=== PATIENT | female | born 1990 | race Caucasian/White ===

== ENCOUNTER 2016-10-28 09:50 | Inpatient (IN) ==
[2016-10-28] MEDS ORDERED: miSOPROStol 25 MCG TABLET PO PRN (10:36)
[2016-10-28] MEDS ORDERED: Famotidine 20 MG/2 ML VIAL IVP PRN (10:36)
[2016-10-28] MEDS ORDERED: Ondansetron 4 MG/2 ML VIAL IVP PRN (10:36)
[2016-10-28 10:57] LABS: Basophils % 0.2 %; Eosinophils # 0.1 K/mcL (0.0-0.6); Eosinophils % 0.5 %; Hematocrit 35.8 % (35.3-44.9); Hemoglobin 11.9 g/dL (11.5-15.4); Immature Granulocytes % 0.5 % (0-4); Immature Platelets 10.1 % (1.1-6.1); Lymphocytes # 1.6 K/mcL (0.6-4.6); Lymphocytes % 14.8 %; Mean Corpuscular HGB Conc 33.2 g/dL (31.6-35.5); Mean Corpuscular Hemoglobin 31.6 pg (28.0-33.3); Mean Platelet Volume 11.5 fL (9.4-12.4); Monocytes # 0.5 K/mcL (0.0-1.3); Neutrophils # 8.6 K/mcL (1.6-8.9); Platelet Count 202 K/mcL (140-400); Red Blood Count 3.77 M/mcL (3.82-4.97); Red Cell Distribution Width 13.1 % (11.5-14.5)
[2016-10-28] MEDS: Ringers Solution, Lactated 1,000 ML IVC SCH ×2 (11:11→18:02)
--- NOTE | 2016-10-28 11:53 | OB/GYN History & Physical ---
Date of Encounter: 10/28/16 Time of Encounter: 11:50 Assessment and Plan (1) 39 weeks gestation of Current visit: Yes Status: Acute Admit for IOL. Cytotec PO for induction. GBS negative. Epidural when requested. AROM when able. Anticipate . (2) Rubella non-immune status, antepartum Current visit: Yes Status: Acute Vaccinate following delivery. History of Present Illness Chief complaint: IOL HPI: Ms. Brandt is a 25 year old female presenting at 39w6d for elective IOL. She denies complaints this am. Good FM. This was complicated by elevated glucola with normal 3 hour GTT. Blood type O positive. Rubella non- immune. Serologies and GBS negative. Past Med Surg Social Fam HX - Past Medical History Medical history: no medical history Psychiatric history: no psych history - Past Surgical History Surgical History: other - Social History Smoking Status: Never smoker Smokeless Tobacco Status: No Alcohol use: none Drug use: none - Family History Father Living Status: Still Living Hx Family Endocrine Disorder: Yes (DIABETES) Obstetrical History - Pregnancies : 1 Para: 0 Medications and Allergies HydrOXYzine Pamoate [Vistaril] 25 mg PO QPM PRN 10/28/16 [History] Nystatin POWDER [Nystop] 2 puff TP QID PRN 10/28/16 [History] Vitamin Tablet 1 tab PO DAILY 10/28/16 [History] Allergies No Known Allergies Allergy (Verified 10/28/16 10:32) Review of System OB All systems PM: reviewed and no additional remarkable complaints except as stated - Constitutional Constitutional ROS IM: no fatigue, no fever(s), no headache(s) - Cardiovascular Cardiovascular: no chest pain - Respiratory Respiratory: no dyspnea - Gastrointestinal Gastrointestinal: no abdominal pain - Genitourinary Genitourinary: no abnormal vaginal bleeding, no pelvic pain - Neurological Nerological: no abnormal speech, no headache(s), no other visual disturbances Exam - Constitutional Constitutional: well developed, well nourished, no acute distress - HEENT HEENT: Mucus Membranes Moist - Neck Neck exam: normal inspection (f) - Lungs Respiratory exam: CTAB - Cardiovascular Cardiovascular exam: RRR, +S1, +S2 - Abdomen Abdomen: Present: gravid, non tender (EFW by leopoljulio 8lbs) - Extremities Extremities exam: pedal edema (1+ edema bilaterally, no redness or warmth) Deep Tendon Reflex Grade: 2+ Normal - Vulva Vulva: bilateral: normal - Vagina Vagina: Present: normal moisture - Cervix Dilation: 2 - Uterus Uterus exam: Present: normal size - Anus/Rectum Anus/Rectum: Present: normal perianal skin Results Result Diagrams: 10/28/16 10:51 Abnormal lab results RBC 3.77 M/mcL (3.82-4.97) L 10/28/16 10:51 Immature Plt Fraction 10.1 % (1.1-6.1) H 10/28/16 10:51 All other labs normal. - VTE Reasons for not Prescribing Prophylaxis: Treatment not Indicated - Low risk for VTE
--- NOTE | 2016-10-28 15:28 | Anesthesia Evaluation PreOp ---
Date of Encounter: 10/28/16 Time of Encounter: 15:20 - Past History Planned Operation: Labor Epidural Cardiac History: Denies any Significant Hx Pulmonary History: Denies Any Significant HX CAREER DEVELOPMENT CONSULTANT History: Other (Deaf) Other Medical History: Denies Any Significant HX Anesthesia History: No Prior Anesthetic Complications : Yes Alcohol Use: none Drug use: none Medications and Allergies HydrOXYzine Pamoate [Vistaril] 25 mg PO QPM PRN 10/28/16 [History] Nystatin POWDER [Nystop] 2 puff TP QID PRN 10/28/16 [History] Vitamin Tablet 1 tab PO DAILY 10/28/16 [History] Allergies No Known Allergies Allergy (Verified 10/28/16 10:32) - Meds/Allergy Pre-op Review Medications Reviewed: Yes Allergies Reviewed: Yes Beta Blockers on Current Med List: No Anesthesia Results - Labs 10/28/16 10:51 Anesthesia Exam Height: 1.75m Weight: 91.6kg NPO (# of Hours): >4hr Pain Scale: 5 Pain Scale Used: Numeric (1 - 10) - HEENT Pupil (Motor): Pupils equal Mallampati: II Teeth: Normal Oral Opening: Greater than 3 - CAREER DEVELOPMENT CONSULTANT LOC: Oriented CAREER DEVELOPMENT CONSULTANT Motor: Normal RUE, Normal LUE, Normal RLE, Normal LLE, Normal Face CAREER DEVELOPMENT CONSULTANT Sensory: Normal: RUE, LUE, RLE, LLE, Face (Deaf) - Cardiac Rhythm: Regular Murmur: None JVD: No Carotid Bruit: No - Pulmonary Breath Sounds: bilateral Clear Respiratory Effort: Symmetrical Anesthesia Assess/Plan ASA Score: 2 Modified [place] Scale for Level of Consciousness: Cooperative, oriented, and tranquil Anesthetic Plan: Regional Monitoring Plan: Standard Monitors Recovery Plan: Other
[2016-10-28] MEDS ORDERED: *HR* FentaNYL (PF) 100 MCG/2 ML VIAL EP ONE (15:31)
[2016-10-28] MEDS ORDERED: *HR* Ropivacaine/PF 0.2% 10 ML AMPUL EP ONE (15:31)
[2016-10-28] MEDS ORDERED: EPHEDrine 50 MG/ML VIAL IVP PRN (15:31)
[2016-10-28] MEDS ORDERED: Epidural Premix (fent/bupiv) 110 ML EP ONE ×2 (15:34→22:21)
[2016-10-28] MEDS ORDERED: *HR* Ropivacaine/PF 0.2% 10 ML AMPUL ONE (15:34)
[2016-10-28] MEDS ORDERED: *HR* FentaNYL (PF) 100 MCG/2 ML VIAL ONE (15:34)
[2016-10-28] MEDS ORDERED: Epidural Premix (fent/bupiv) 110 ML EP SCH (15:45)
--- NOTE | 2016-10-28 16:07 | Anesthesia Procedures ---
Date of Encounter: 10/28/16 Time of Encounter: 15:45 Procedures: Anesthesia - Epidural/Spinal Patient ID/Chart reviewed: Yes Patient examined: Yes OB Eval: Gestational age: 39.6 OB Eval: : 1 OB Eval: Hx Para: 0 OB Eval: Dilated at (cm): 4 OB Eval: Contractions: Non-stressed pattern Consent Obtained: Yes Supplemental Oxygen: None/Room Air Site Prep: Aseptic Technique, Sterile prep and drape, 0.5% Chlorhexidine/Alcohol Patient position: upright Local Anesthetic: Lidocaine 1% Amount of Local Anesthetic used: 3 Touhy Needle Gauge: 18 Touhy Needle Depth (cm): 7 Catheter Depth at Skin (cm): 13 Test Dose (1.5% Lido + Epi): Volume given (mls): 5 Test Dose Result: Negative Loading Dose: Fentanyl (mcg): 100 Loading Dose: Other: Ropivacaine 0.2% 10mL Loading Dose Administered: Thru Catheter Infusion Med: 0.125% Bupivacaine w/ 2 mcg/ml Fentanyl Infusion Rate (mls/hr): 16 (Bolus 4mL q15min; Max 3/hr) Catheter Secured in Place: Tegaderm Interspace Used: L2-L3 Loss of Resistance (HILDA): Yes Blood: No CSF: No Paresthesia: No Procedure: Patient tolerated well. 1 attempt at L2/3 level. Vitals + FHT's: VSS and FHR stable throughout procedure. See nursing documentation.
--- NOTE | 2016-10-28 16:39 | OB Labor Progress Note ---
Date of Encounter: 10/28/16 Time of Encounter: 16:37 Labor Progress Note - Subjective Subjective: Pt comfortable with epidural. - Cervix Cervix: 4/50/-1 - Heart Tones Heart Tones: Category I - Laird Laird: 2-3 minutes - Interventions Interventions: AROM for moderate amount clear fluid, IUPC placed - Plan Plan: Continue to monitor. Anticipate .
[2016-10-28] MEDS ORDERED: Oxytocin 20 units/ LR 1000 mL 20 UNIT/1,000 ML BAG IVC SCH (17:15)
[2016-10-29] MEDS ORDERED: Epidural Premix (fent/bupiv) 110 ML EP ONE (05:41)
--- NOTE | 2016-10-29 08:27 | OB/GYN Procedure Note ---
Delivery - Delivery Date: 10/29/16 Provider: Mil Barron Intrapartum events: none Delivery induction: oxytocin, galeana, misoprostol Delivery augmentation: rupture of membranes Delivery monitor: external FHT, internal uterine Anesthesia: epidural Estimated Blood Loss: 200 - (s) A Infant Delivery Date: 10/29/16 Delivery Time: 08:01 Presentation: vertex Position: CONNIE Route of delivery: Gender: Male Pounds: 7 Ounces: 13 at 1 minute: 8 at 5 mins: 9 Shoulder Dystocia: not encountered Specimens collected: cord blood Placenta: spontaneous Cord: 3 umbilical vessels - Repair Episiotomy: none Laceration Description: Perineal - 1st Degree - Complications Delivery complications: none - Disposition Mom disposition: stable in LDR disposition: stable in LDR
[2016-10-29] MEDS ORDERED: Rho Immune Globulin 1,500 UNIT SYRINGE IM PRN (11:05)
[2016-10-29] MEDS ORDERED: Nitrofurantoin (BID) 100 MG CAPSULE PO SCH (11:05)
[2016-10-29] MEDS ORDERED: Measles/Mumps/Rubella Vacc 0.5 ML VIAL SQ PRN (11:05)
[2016-10-29] MEDS ORDERED: Oxytocin 20 units/ LR 1000 mL 20 UNIT/1,000 ML BAG IVC SCH (11:05)
[2016-10-29] MEDS ORDERED: Acetaminophen 325 MG TABLET PO PRN (11:05)
[2016-10-29] MEDS: Prenatal Vit/FA 1 EACH TABLET PO SCH (11:48)
[2016-10-29] MEDS: Ibuprofen 600 MG TABLET PO PRN (22:46)
[2016-10-30 03:58] LABS: Basophils % 0.1 %; Eosinophils # 0.1 K/mcL (0.0-0.6); Eosinophils % 0.7 %; Hematocrit 28.9 % (35.3-44.9); Immature Granulocytes % 0.7 % (0-4); Lymphocytes # 2.1 K/mcL (0.6-4.6); Lymphocytes % 12.6 %; Mean Corpuscular HGB Conc 32.5 g/dL (31.6-35.5); Mean Corpuscular Hemoglobin 31.9 pg (28.0-33.3); Mean Platelet Volume 11.4 fL (9.4-12.4); Monocytes # 0.8 K/mcL (0.0-1.3); Monocytes % 4.7 %; Neutrophils # 13.7 K/mcL (1.6-8.9); Platelet Count 184 K/mcL (140-400); Red Blood Count 2.95 M/mcL (3.82-4.97); Red Cell Distribution Width 13.5 % (11.5-14.5); Segmented Neutrophils % 81.2 %
[2016-10-30 04:22] LABS: Hemoglobin 9.4 g/dL (11.5-15.4)
[2016-10-30 08:34] VITALS: BP 115/72
[2016-10-30] MEDS: Ibuprofen 600 MG TABLET PO PRN (08:39)
[2016-10-30] MEDS: Prenatal Vit/FA 1 EACH TABLET PO SCH (08:39)
--- NOTE | 2016-10-30 10:41 | Discharge Summary ---
Date of Encounter: 10/30/16 Time of Encounter: 10:38 - Discharge Diagnosis (1) Rubella non-immune status, antepartum Priority: Secondary Status: Acute Comments: MMR prior to discharge. (2) (normal spontaneous vaginal delivery) Priority: Primary Status: Acute Comments: Pt meeting milestones. (3) anemia Priority: Secondary Status: Acute Comments: Discharge home on iron. Pt denies s/sx anemia (4) Hemorrhoid Priority: Secondary Status: Acute Comments: Tucks given. Qualifiers: Hemorrhoid type: unspecified Qualified Code(s): K64.9 - Unspecified hemorrhoids (5) Yeast dermatitis Priority: Secondary Status: Acute Comments: Pt requesting more nystatin cream. - Discharge Medications Prescriptions: Ibuprofen [Motrin] 600 mg PO Q6HR PRN #60 tablet PRN Reason: Analgesia Docusate [Colace] 100 mg PO BID #60 capsule Ferrous Sulfate 325 mg PO DAILY #30 tablet Home Medications: Nystatin POWDER [Nystop] 2 puff TP QID PRN 10/28/16 [History] Vitamin Tablet 1 tab PO DAILY 10/28/16 [History] Dibucaine [Nupercainal] 1 appl TP BID #1 tube 10/30/16 [Rx] Docusate [Colace] 100 mg PO BID #60 capsule 10/30/16 [Rx] Ferrous Sulfate 325 mg PO DAILY #30 tablet 10/30/16 [Rx] Ibuprofen [Motrin] 600 mg PO Q6HR PRN #60 tablet 10/30/16 [Rx] Nystatin Cream [Mycostatin Cream] 1 appl TP BID #1 tube 10/30/16 [Rx] Allergies/Adverse Reactions: Allergies No Known Allergies Allergy (Verified 10/28/16 10:32) Data Procedures and tests throughout hospitalization: Laboratory Tests 10/28/16 10/30/16 10:51 03:43 WBC 10.9 16.9 H D RBC 3.77 L 2.95 L Hgb 11.9 9.4 L D Hct 35.8 28.9 L MCV 95.0 98.0 MCH 31.6 31.9 MCHC 33.2 32.5 RDW 13.1 13.5 Plt Count 202 184 MPV 11.5 11.4 Immature Gran % 0.5 0.7 Seg Neutrophils % 79.0 81.2 Lymphocytes % 14.8 12.6 Monocytes % 5.0 4.7 Eosinophils % 0.5 0.7 Basophils % 0.2 0.1 Neutrophils # 8.6 13.7 H Lymphocytes # 1.6 2.1 Monocytes # 0.5 0.8 Eosinophils # 0.1 0.1 Basophils # 0.0 0.0 Immature Plt Fraction 10.1 H Labs on day of discharge: Labs from last 24 hours 10/30/16 03:43 WBC 16.9 H D RBC 2.95 L Hgb 9.4 L D Hct 28.9 L MCV 98.0 MCH 31.9 MCHC 32.5 RDW 13.5 Plt Count 184 MPV 11.4 Immature Gran % 0.7 Seg Neutrophils % 81.2 Lymphocytes % 12.6 Monocytes % 4.7 Eosinophils % 0.7 Basophils % 0.1 Neutrophils # 13.7 H Lymphocytes # 2.1 Monocytes # 0.8 Eosinophils # 0.1 Basophils # 0.0 Date of admission: 10/28/16 09:50 Primary care physician: PCP MELLISA Consults: 10/29/16 11:05 Consult to Hvac Service Technician [CONS] Routine Comment: Vaginal delivery, consult needed Discharging clinician: Amy Díaz Anticipated date of discharge: 10/30/16 - Patient Status Disposition: Home, Self-Care Condition: Good Functional capacity at discharge: independent ambulation Overall status at discharge: patient is progressing back to baseline - Discharge Instructions Follow Up With: MELLISA,PCP [Primary Care Provider] - Mil Barron MD [Partnered Physician] - - Diet and Activity Activity: increase activity as tolerated Diet: advance to your usual diet Hospital Course Reason for admission: induction of labor Delivery: Episiotomy: none Laceration: 1st degree Other procedures: none complications: none Discharge diagnosis: IUP at term delivered baby: male Hospital course: - Delivery Date: 10/29/16 Provider: Mil Barron Intrapartum events: none Delivery induction: oxytocin, galeana, misoprostol Delivery augmentation: rupture of membranes Delivery monitor: external FHT, internal uterine Anesthesia: epidural Estimated Blood Loss: 200 - (s) Infant A Infant Delivery Date: 10/29/16 Infant Delivery Time: 08:01 Presentation: vertex Position: CONNIE Route of delivery: Gender: Male Pounds: 7 Ounces: 13 at 1 minute: 8 at 5 mins: 9 Shoulder Dystocia: not encountered Specimens collected: cord blood Placenta: spontaneous Cord: 3 umbilical vessels - Repair Episiotomy: none Laceration Description: Perineal - 1st Degree - Complications Delivery complications: none - Disposition Mom disposition: home PPD#1 [place] disposition: home with mother, bottle feeding Time Attestation: Total time spent providing and/or coordinating discharge services: Time Spent: Less than 30 minutes Exam - Constitutional Vitals: Temp Pulse Resp BP Pulse Ox 98 F 105 20 115/72 98 10/30/16 08:05 10/30/16 08:05 10/30/16 08:45 10/30/16 08:05 10/30/16 08:05 General appearance IM: A&O X 3, pleasant, no acute distress - Respiratory Respiratory exam: Present: CTAB - Cardiovascular Cardiovascular exam IM: Present: RRR, +S1, +S2 - GI/Abdominal GI/Abdominal exam IM: soft - Rectal Rectal exam: hemorrhoids - External exam: normal external exam Uterine Tone: Firm Uterus Position: 1 Finger Below Umbilicus - Extremities Exam Extremities exam IM: Present: normal inspection, pedal edema (mild edema bilaterally) - Neurological Exam Neurological exam: normal gait, oriented X3 - Psychiatric Additional comments: reports good mood
== END 2016-10-30 12:41 | disposition home or self-care (01) | DRG 775 ==
LOC: 1NENULAB 09:50 → 1NENUOBS 10-29 10:40
PROVIDERS: ADMIT Obstetrics & Gynecology; ATTEND Obstetrics & Gynecology

== ENCOUNTER → 2021-06-07 18:15 | Observation (INO) ==
[2021-06-07 17:40] LABS: Bilirubin,Urine Negative (Negative); Blood,Urine Negative (Negative); Clarity,Urine Clear (Clear); Color,Urine Colorless (Yellow); Glucose,Urine (UA) Normal (Normal); Ketones,Urine 20 mg/dL (Negative); Leukocyte Esterase,Urine Negative (Negative); Nitrite,Urine Negative (Negative); PH,Urine 6.5 pH Units (5.0-8.0); Protein,Urine Negative (Neg-Trace); Specific Gravity,Urine 1.007 (1.010-1.025); Urobilinogen,Urine Normal (Normal)
== END | disposition home or self-care (01) ==
LOC: 1NENULAB
PROVIDERS: ADMIT Advanced Practice Midwife; ATTEND Advanced Practice Midwife

== ENCOUNTER → 2021-07-11 15:26 | Observation (INO) | END | disposition home or self-care (01) | LOC: 1NENULAB | PROVIDERS: ADMIT Advanced Practice Midwife; ATTEND Advanced Practice Midwife ==

== ENCOUNTER → 2021-07-25 14:59 | Observation (INO) | END | disposition home or self-care (01) | LOC: 1NENULAB | PROVIDERS: ADMIT Advanced Practice Midwife; ATTEND Advanced Practice Midwife ==

== ENCOUNTER → 2021-07-27 16:44 | Observation (INO) ==
[2021-07-27 16:16] LABS: Bilirubin,Urine Negative (Negative); Blood,Urine Negative (Negative); Clarity,Urine Clear (Clear); Color,Urine Light-Yellow (Yellow); Glucose,Urine (UA) Normal (Normal); Ketones,Urine 40 mg/dL (Negative); Leukocyte Esterase,Urine Trace (Negative); Nitrite,Urine Negative (Negative); PH,Urine 6.5 pH Units (5.0-8.0); Protein,Urine Trace mg/dL (Neg-Trace); Specific Gravity,Urine 1.015 (1.010-1.025); Urobilinogen,Urine Normal (Normal)
[2021-07-27 16:28] LABS: Mucus,Urine Many per lpf (None-Few); Squamous Epithelial Cell,Urine Few per hpf (None-Few)
== END | disposition home or self-care (01) ==
LOC: 1NENULAB
PROVIDERS: ADMIT Advanced Practice Midwife; ATTEND Advanced Practice Midwife

== ENCOUNTER 2021-08-08 11:21 | Inpatient (IN) ==
[2021-08-08] MEDS ORDERED: Naloxone 0.4 MG/ML INJ IVP PRN (11:35)
[2021-08-08] MEDS ORDERED: *HR* Nalbuphine 10 MG/ML AMPUL IV PRN (11:35)
[2021-08-08] MEDS ORDERED: Famotidine 20 MG/2 ML VIAL IVP PRN (11:35)
[2021-08-08] MEDS ORDERED: Azithromycin 500 MG in 0.9 % Sodium Chloride 250 ML IVPB PRN (11:35)
[2021-08-08] MEDS ORDERED: Ondansetron 4 MG/2 ML VIAL IVP PRN (11:35)
[2021-08-08] MEDS ORDERED: Metoclopramide 10 MG/2 ML VIAL IVP PRN (11:35)
[2021-08-08] MEDS ORDERED: Oxytocin 20 units/ LR 1000 mL 20 UNIT/1,000 ML BAG IVC SCH (11:45)
[2021-08-08] MEDS ORDERED: Penicillin G Potassium 5,000,000 UNIT in 0.9 % Sodium Chloride Mini Bag 100 ML IVPB ONE (12:00)
[2021-08-08] MEDS ORDERED: EPHEDrine 50 MG/ML VIAL IVP PRN (12:25)
[2021-08-08] MEDS ORDERED: Epidural Premix (fent/bupiv) 110 ML EP SCH (12:30)
[2021-08-08 12:48] LABS: Basophils % 0.3 %; Eosinophils # 0.1 K/mcL (0.0-0.6); Eosinophils % 0.4 %; Hematocrit 34.8 % (35.3-44.9); Hemoglobin 11.6 g/dL (11.5-15.4); Immature Granulocytes % 0.6 % (0-4); Lymphocytes # 1.7 K/mcL (0.6-4.6); Lymphocytes % 12.7 %; Mean Corpuscular HGB Conc 33.3 g/dL (31.6-35.5); Mean Corpuscular Hemoglobin 32.9 pg (28.0-33.3); Mean Corpuscular Volume 98.6 fL (83.0-100.0); Mean Platelet Volume 10.7 fL (9.4-12.4); Monocytes # 0.7 K/mcL (0.0-1.3); Monocytes % 5.1 %; Neutrophils # 10.7 K/mcL (1.6-8.9); Platelet Count 261 K/mcL (140-400); Red Blood Count 3.53 M/mcL (3.82-4.97); Red Cell Distribution Width 12.8 % (11.5-14.5); Segmented Neutrophils % 80.9 %; White Blood Count 13.2 K/mcL (4.3-11.1)
[2021-08-08] MEDS ORDERED: Ondansetron 4 MG/2 ML VIAL ONE (13:03)
[2021-08-08 13:15] LABS: Influenza A PCR Negative (Negative); Influenza B PCR Negative (Negative); Resp. Syncytial Virus PCR Negative (Negative)
[2021-08-08 13:17] LABS: SARS-CoV-2 by PCR (In House) Negative (Negative)
[2021-08-08 13:24] LABS: Amphetamine Screen,Urine Negative ng/mL (Cutoff=1000); Barbiturate Screen,Urine Negative ng/mL (Cutoff=200); Benzodiazepines Screen,Urine Negative ng/mL (Cutoff=200); Cannabinoid Screen,Urine Negative ng/mL (Cutoff = 50); Cocaine Screen,Urine Negative ng/mL (Cutoff= 300); Opiate Screen,Urine Negative ng/mL (Cutoff=300); Phencyclidine Screen,Urine Negative ng/mL (Cutoff=25)
[2021-08-08] MEDS: Ringers Solution, Lactated 1,000 ML IVC SCH ×2 (13:59→22:03)
[2021-08-08] MEDS: Penicillin G Potassium 2,500,000 UNIT/105 ML MLS IVPB SCH ×2 (18:03→22:03)
[2021-08-09] MEDS ORDERED: Oxytocin 20 units/ LR 1000 mL 20 UNIT/1,000 ML BAG IVC ONE (04:36)
[2021-08-09] MEDS ORDERED: Lanolin 7 G OINT...G. TP PRN (04:36)
[2021-08-09] MEDS ORDERED: Ondansetron ODT 4 MG TAB.RAPDIS SL PRN (04:36)
[2021-08-09] MEDS ORDERED: Oxytocin 20 units/ LR 1000 mL 20 UNIT/1,000 ML BAG IVC SCH (04:36)
[2021-08-09] MEDS ORDERED: Measles/Mumps/Rubella Vacc 0.5 ML VIAL SQ PRN (04:36)
[2021-08-09] MEDS ORDERED: Benzocaine/Menthol 56 GM AEROSOL SPRAY TP PRN (04:36)
[2021-08-09] MEDS ORDERED: Rho Immune Globulin 1,500 UNIT SYRINGE IM PRN (04:36)
[2021-08-09] MEDS: Prenatal Vit/FA 1 EACH TABLET PO SCH (08:03)
[2021-08-09] MEDS: Acetaminophen 325 MG TABLET PO SCH ×2 (09:28→18:29)
[2021-08-09] MEDS: Ibuprofen 600 MG TABLET PO SCH ×2 (09:28→18:28)
[2021-08-10] MEDS: Ibuprofen 600 MG TABLET PO SCH (03:40)
[2021-08-10] MEDS: Acetaminophen 325 MG TABLET PO SCH (03:40)
[2021-08-10 04:24] LABS: Basophils % 0.4 %; Eosinophils # 0.1 K/mcL (0.0-0.6); Eosinophils % 1.1 %; Hematocrit 32.7 % (35.3-44.9); Hemoglobin 11.1 g/dL (11.5-15.4); Immature Granulocytes % 0.6 % (0-4); Lymphocytes # 2.5 K/mcL (0.6-4.6); Lymphocytes % 22.6 %; Mean Corpuscular HGB Conc 33.9 g/dL (31.6-35.5); Mean Corpuscular Hemoglobin 33.4 pg (28.0-33.3); Mean Corpuscular Volume 98.5 fL (83.0-100.0); Mean Platelet Volume 10.7 fL (9.4-12.4); Monocytes # 0.6 K/mcL (0.0-1.3); Monocytes % 5.7 %; Neutrophils # 7.8 K/mcL (1.6-8.9); Platelet Count 257 K/mcL (140-400); Red Blood Count 3.32 M/mcL (3.82-4.97); Red Cell Distribution Width 12.8 % (11.5-14.5); Segmented Neutrophils % 69.6 %; White Blood Count 11.2 K/mcL (4.3-11.1)
[2021-08-10 08:30] VITALS: BP 108/74; PULSE 66; TEMP 97.9; O2SAT 99
[2021-08-10] MEDS: Prenatal Vit/FA 1 EACH TABLET PO SCH (08:51)
== END 2021-08-10 11:17 | disposition home or self-care (01) | DRG 807 ==
LOC: 1NENULAB 11:21 → 1NENUOBS 08-09 05:42
PROVIDERS: ADMIT Obstetrics & Gynecology; ATTEND Obstetrics & Gynecology